=== PATIENT | female | born 1990 | race Caucasian/White ===

== ENCOUNTER → 2021-11-26 | Outpatient (CLI) | payer BC | LOC: US 14:00 → EXRD 14:07 | DX: O99.891 Other specified diseases and conditions complicating pregnancy (principal); R60.0 Localized edema; Z3A.37 37 weeks gestation of pregnancy | CPT/HCPCS: 93971 ==

== ENCOUNTER 2021-11-30 06:15 | Inpatient (IN) | payer BC ==
[~2021-11-30] VITALS: Ht 172.7 cm; Wt 108.9 kg
[2021-11-30 07:47] LABS: HEMOGLOBIN 11.8 gm/dl (12.3-15.3); RED BLOOD COUNT 3.88 M/UL (4.00-5.10); WHITE BLOOD COUNT 10.2 K/UL (4.5-11.0)
[2021-12-01] MEDS ORDERED: PERCOCET 5/325 T1 EA PO (05:36)
[2021-12-01] MEDS ORDERED: HEMOCYTE324 MG PO (05:36)
[2021-12-01] MEDS ORDERED: IBUPROFEN800 MG PO (05:36)
[2021-12-01] MEDS ORDERED: COLACE100 MG PO (05:36)
[2021-12-01 06:08] LABS: HEMOGLOBIN 10.2 gm/dl (12.3-15.3)
== END 2021-12-02 16:43 | disposition home or self-care (01) | DRG 788 ==
LOC: GENOP 06:15 → OB 07:55
PROVIDERS: ADMIT Obstetrics & Gynecology
PROC: 3E0234Z Introduction of Serum, Toxoid and Vaccine into Muscle, Percutaneous Approach (ICD-10-PCS; 2021-11-30)
PROC: 10D00Z1 Extraction of Products of Conception, Low, Open Approach (ICD-10-PCS; principal; 2021-11-30 10:49)
DX: O36.63X0 Maternal care for excessive fetal growth, third trimester, not applicable or unspecified (principal); Z37.0 Single live birth; Z3A.38 38 weeks gestation of pregnancy; Z82.49 Family history of ischemic heart disease and other diseases of the circulatory system; Z23 Encounter for immunization; Z20.822 Contact with and (suspected) exposure to COVID-19
CPT/HCPCS: 83518; 85014; 85018; 85025; 90471; 90715; C9113; J1580; J1885; J2274; J2370; J2405; J2590; J2765; J2795; J3010; J7120